=== PATIENT | male | born 1970 | race Caucasian/White ===

== ENCOUNTER 2020-01-06 12:15 | Day surgery (SDC) | payer BC ==
[2020-01-05 09:09] VITALS: BMI 35.2
[~2020-01-06 12:15] MED LIST: LACTATED RINGERS 1,000 ML IV SCH; LIDOCAINE 1% (10MG/ML) FOR IV START INTRADERMA PRN
[2020-01-06 13:01] VITALS: TEMP 99
[2020-01-06] MEDS ORDERED: LIDOCAINE 1% INJ 10MG/ML (20 ML MDV) ONE (13:07)
[2020-01-06] MEDS ORDERED: PROPOFOL 10 MG/ML 20 ML VIAL IV ONE (13:07)
[2020-01-06 14:06] VITALS: RESP 16
[2020-01-06 14:20] VITALS: BP 111/72; PULSE 61
--- NOTE | 2020-01-06 15:08 | P.OP ---
Date of Procedure: 01/06/20 Preoperative Diagnosis: Screening colonoscopy Postoperative Diagnosis: Cecal polyp Diverticulosis Procedure(s) Performed: Colonoscopy with hot snare polypectomy Anesthesia: ANAMARIA ALEXANDRE Surgeon: Remberto Bruno Estimated Blood Loss (ml): 0 Condition: stable Disposition: PACU Description of Procedure: Patient brought in the Endo suite placed in left lateral decubitus position underwent sedation per department of anesthesia timeout performed correct patient correct procedure correct site was verified rectal exam was performed no gross abnormalities are noted the scope was placed in the rectum to the cecum with ease. In the cecum there was a large pedunculated polyp that was removed via hot snare polypectomy and sent to pathology. The scope was then slowly withdrawn make sure to visualize all lara of the colon on the way out. Scattered sigmoid diverticuli were noted. No other abnormalities are noted. Scope was retroflexed in the rectum no gross abnormalities were noted. Patient tolerated the procedure well there are no apparent complications. He'll need a follow-up in 1-3 years for repeat colonoscopy pending the pathology
== END 2020-01-06 14:52 | disposition home or self-care (01) ==
LOC: ORWHC2ENDO 12:15
PROVIDERS: ATTEND Student in an Organized Health Care Education/Training Program
DX: Z12.11 Encounter for screening for malignant neoplasm of colon (principal); D12.0 Benign neoplasm of cecum; K57.30 Diverticulosis of large intestine without perforation or abscess without bleeding; I10 Essential (primary) hypertension; E78.5 Hyperlipidemia, unspecified; Z79.899 Other long term (current) drug therapy
CPT/HCPCS: 88305; 45385; J2001; J2704

== ENCOUNTER 2020-01-15 11:47 | Emergency (ER) | payer BC ==
[2020-01-15] MEDS ORDERED: ONDANSETRON 4 MG/2 ML VIAL IVP STA ×2 (11:52→13:02)
[2020-01-15] MEDS ORDERED: KETOROLAC 30 MG/ML 1 ML VIAL IVP STA (11:52)
[2020-01-15] MEDS ORDERED: HYDROmorphone 1 MG/ML 1 ML SYRINGE IVP STA (11:52)
[2020-01-15] MEDS ORDERED: SODIUM CHLORIDE 0.9% 2,000 ML IV STA (11:52)
[2020-01-15 12:00] VITALS: RESP 18
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
--- NOTE | 2020-01-15 12:38 | CT ---
EXAMINATION TYPE: CT abdomen pelvis wo con DATE OF EXAM: 01/15/2020 COMPARISON: None HISTORY: right flank pain CT DLP: 1203.4 mGycm Automated exposure control for dose reduction was used. TECHNIQUE: Helical acquisition of images was performed from the lung bases through the pelvis. FINDINGS: Lack of intravenous and oral contrast limit evaluation of the hollow and solid viscera. LUNG BASES: Minimal bibasilar subsegmental dependent atelectasis. Small hiatal hernia. LIVER/GB: Unremarkable unenhanced morphology. No radiopaque gallstones. PANCREAS: No ductal dilatation. SPLEEN: No splenomegaly. ADRENALS: No significant abnormality is seen. KIDNEYS: There is mild right hydronephrosis secondary to a 3 mm calculus at the right ureterovesicula r junction. It is mild right perinephric fat stranding. There is a hypoattenuated right lower pole re nal lesion that is ill-defined without contrast and too small to accurately characterize. Nonobstruct ing 2 mm left lower pole renal calculus is seen. No left-sided hydronephrosis. FREE AIR: No free air is visualized RETROPERITONEAL ADENOPATHY: No greater than 1 cm short axis lymph node in the abdomen or pelvis. OSSEOUS STRUCTURES: Moderate degenerative change of the spine. BOWEL: Numerous sigmoid and descending colonic diverticula without pericolonic fat stranding. No dil ated large or small bowel. Appendix is air-filled and within normal limits size. OTHER: Ventral diastases recti and a small fat filled periumbilical hernia are seen. Bilateral fat fi lled inguinal hernias are also seen. IMPRESSION: 1. MILD RIGHT HYDRONEPHROSIS AND PERINEPHRIC FAT STRANDING SECONDARY TO A 3 MM CALCULUS AT THE RIGHT URETEROVESICULAR JUNCTION. 2. NONOBSTRUCTING LEFT RENAL CALCULUS. 3. SIGMOID AND DESCENDING COLONIC DIVERTICULOSIS WITHOUT EVIDENCE OF DIVERTICULITIS. 4. SMALL HIATAL HERNIA.
[2020-01-15 12:41] LABS: Basophils % (A) 0 %; Eosinophils % (A) 0 %; HCT 45.5 % (39.0-53.0); HGB 14.7 gm/dL (13.0-17.5); Lymphocytes # (A) 0.5 k/uL (1.0-4.8); Lymphocytes % (A) 7 %; MCH 30.7 pg (25.0-35.0); MCHC 32.4 g/dL (31.0-37.0); MCV 94.8 fL (80.0-100.0); Mean Platelet Volume 6.8; Monocytes # (A) 0.3 k/uL (0-1.0); Monocytes % (A) 4 %; Neutrophils # (A) 6.4 k/uL (1.3-7.7); Neutrophils % (A) 89 %; Platelet Count 209 k/uL (150-450); RBC 4.81 m/uL (4.30-5.90); RDW 13.3 % (11.5-15.5); WBC 7.2 k/uL (3.8-10.6)
[2020-01-15] MEDS ORDERED: TAMSULOSIN 0.4 MG CAP.ER.24H PO STA (12:45)
[2020-01-15 12:53] LABS: Albumin 4.4 g/dL (3.5-5.0); Potassium 4.6 mmol/L (3.5-5.1); Total Bilirubin 1.2 mg/dL (0.2-1.3); Total Protein 7.1 g/dL (6.3-8.2)
[2020-01-15] MEDS ORDERED: HYDROmorphone 0.5 MG/0.5 ML SYRINGE IVP STA (13:01)
[2020-01-15] MEDS ORDERED: SODIUM CHLORIDE 0.9% 1,000 ML IV ONE (13:03)
[2020-01-15 13:09] VITALS: TEMP 97.7
[2020-01-15 14:06] LABS: Appearance,Urine Clear (Clear); Bilirubin,Urine Negative (Negative); Blood,Urine Small (Negative); Color,Urine Yellow; Glucose,Urine (UA) Negative (Negative); Ketones,Urine 2+ (Negative); Leukocyte Esterase,Urine Negative (Negative); Mucus,Urine Rare /hpf; Nitrite,Urine Negative (Negative); Protein,Urine Trace (Negative); RBC,Urine 9 /hpf (0-5); Squamous Epithelial Cell,Urine <1 /hpf (0-4); Urobilinogen,Urine <2.0 mg/dL (<2.0); WBC,Urine <1 /hpf (0-5)
[2020-01-15] MEDS ORDERED: HYDROcodone/APAP 7.5-325MG 1 EACH TAB PO ONE (14:29)
[2020-01-15 14:33] VITALS: BP 113/69; PULSE 79
== END 2020-01-15 14:47 | disposition home or self-care (01) ==
LOC: EC 11:47
DX: N13.2 Hydronephrosis with renal and ureteral calculous obstruction (principal); I10 Essential (primary) hypertension; E78.5 Hyperlipidemia, unspecified; Z79.899 Other long term (current) drug therapy
CPT/HCPCS: 36415; 80053; 82150; 83690; 85025; 81001; 74176; 99284; 96374; 96375 ×2; 96376 ×2; 96361 ×3; J2405; J1885; J1170 ×2

== ENCOUNTER → 2023-06-18 | Outpatient (CLI) | payer BC ==
[2023-06-18 11:20] LABS: Blood Urea Nitrogen 20.4 mg/dL (9.0-27.0); Chloride 105 mmol/L (96-109); Potassium 4.7 mmol/L (3.5-5.5); Sodium 140 mmol/L (135-145)
[2023-06-18 12:15] LABS: HCT 47.5 % (39.6-50.0); HGB 15.6 d/dL (13.0-17.0); MCH 30.9 pg (27.0-32.0); MCHC 32.8 d/dL (32.0-37.0); MCV 94.1 FL (80.0-97.0); Mean Platelet Volume 9.3 FL (9.5-12.2); NRBC Per 100 WBC 0 X 10*3/uL (0.00-0.01); Platelet Count 235 X 10*3/uL (140-440); RBC 5.05 X 10*6/uL (4.40-5.60); RDW 13.5 % (11.5-14.5); WBC 5.75 X 10*3/uL (4.50-10.00)
== END | disposition home or self-care (01) ==
LOC: LABPAT 07:37
PROVIDERS: ATTEND Student in an Organized Health Care Education/Training Program
DX: Z01.812 Encounter for preprocedural laboratory examination (principal); I47.1 Supraventricular tachycardia
CPT/HCPCS: 80051; 82565; 84520; 85027

== ENCOUNTER 2023-06-20 06:20 | Day surgery (SDC) | payer BC ==
[2023-06-17 15:25] VITALS: BMI 32.1
[~2023-06-20 06:20] MED LIST changes: +ALPRAZolam 0.25 MG TAB PO PRN; +ALPRAZolam 0.5 MG TAB PO PRN; -LACTATED RINGERS 1,000 ML IV SCH; -LIDOCAINE 1% (10MG/ML) FOR IV START INTRADERMA PRN; +NITROGLYCERIN SL TABS 0.4 MG TAB SUBLINGUAL PRN; +SODIUM CHLORIDE 0.9% 1,000 ML in EMPTY BAG 1 BAG IV SCH
[2023-06-20] MEDS ORDERED: SODIUM CHLORIDE 0.9% 1,000 ML IV ONE (06:55)
[2023-06-20] MEDS ORDERED: ASPIRIN 325 MG TAB PO ONE (07:00)
[2023-06-20] MEDS ORDERED: HEPARIN SODIUM,PORCINE (1 ML) 2,500 UNIT in SODIUM CHLORIDE 0.9% 250 ML IRRIGATION PRN (07:00)
[2023-06-20] MEDS ORDERED: ATORVASTATIN 80 MG TAB PO ONE (07:00)
[2023-06-20] MEDS ORDERED: HEPARIN SODIUM,PORCINE 10,000 UNIT in SODIUM CHLORIDE 0.9% 1,000 ML IRRIGATION PRN (07:00)
[2023-06-20 07:08] VITALS: RESP 16; TEMP 98.1
[2023-06-20] MEDS ORDERED: VERAPAMIL 2.5 MG/ML 2 ML AMP ONE ×2 (07:31→08:26)
[2023-06-20] MEDS ORDERED: LIDOCAINE 1% INJ 10MG/ML (20 ML MDV) ONE (07:31)
[2023-06-20] MEDS ORDERED: HEPARIN SODIUM 1,000 UN/ML (10ML VL) ONE (07:40)
[2023-06-20] MEDS ORDERED: fentaNYL (PF) 50 MCG/ML 2 ML AMP ONE (07:41)
[2023-06-20] MEDS ORDERED: fentaNYL (PF) 50 MCG/ML 2 ML AMP IVP ONE (07:44)
[2023-06-20] MEDS: LIDOCAINE 1% INJ 10MG/ML (20 ML MDV) SQ ONE ×2 (07:44→08:08)
[2023-06-20] MEDS ORDERED: LIDOCAINE 1% INJ 10MG/ML (20 ML MDV) SQ ONE (07:44)
[2023-06-20] MEDS: MIDAZOLAM 2 MG/2 ML VIAL IVP ONE ×2 (07:44→08:05)
[2023-06-20] MEDS ORDERED: VERAPAMIL SYRINGE (5 MG/10 ML) INTRAARTER ONE ×2 (07:46→08:29)
[2023-06-20] MEDS ORDERED: HEPARIN SODIUM 1,000 UN/ML (10ML VL) IV ONE (08:30)
[2023-06-20 08:43] LABS: O2 Sat Blood Gas 77.6 %
[2023-06-20 08:46] LABS: O2 Sat Blood Gas 95.7 %
[2023-06-20] MEDS ORDERED: IOPAMIDOL-370 100ML BTL INJ ONE (09:00)
[2023-06-20 16:11] VITALS: BP 114/60; PULSE 55
--- NOTE | 2023-06-20 16:52 | P.CARDCATH ---
Date of Procedure: 06/20/23 Description of Procedure: DIAGNOSTIC CORONARY ANGIOGRAPHY, RIGHT HEART CATH, LEFT HEART CATH REPORT PROCEDURES PERFORMED: 1. Left heart catheterization 2. Selective coronary angiography 3. Moderate conscious sedation 72 mins 4. Right radial access 5. Right heart catheterization 5. Right femoral vein access INDICATION: Unstable Angina. Patient is a 52-year-old female who is known to Dr. Gonsalez. Over last few weeks patient has been having palpitations. He was found to have frequent premature ventricular contractions. His echocardiogram showed increased pulmonary artery systolic pressure. For this he was scheduled for an outpatient left and right heart catheterization to look for coronary artery disease and to measure right-sided pressures. CONSENT: I have discussed the risks, benefits and alternative therapies for the above-mentioned procedure, sedation/analgesia and necessary blood product administration (if indicated, as they pertain to this patient). The patient has indicated understanding and acceptance of the risks and procedures discussed. Conscious Sedation: Patient's ECG, heart rate, blood pressure, pulse oxymetry was monitored throughout the duration of procedure under the direct supervision. [2] mg Versed and [50] mg Fentanyl were used for induction of moderate conscious sedation. Total duration of [72] minutes PROCEDURE: After the risks, benefits and alternatives of the above mentioned procedure explained in detail with the patient, informed consent was obtained. Patient was taken to the catheterization lab and prepped and draped in usual sterile fashion. 1% lidocaine was infiltrated over the right radial artery. A 6-N[place]ien sheath was placed in the right radial artery using modified Seldinger technique. Under ultrasound guidance right antecubital venous access was attempted but it was unsuccessful. We decided to proceed with left femoral vein access. Left femoral access was achieved using ultrasound guidance using a micropuncture needle and modified Seldinger technique. 6 [place] sheath was advanced and through that sheath 6 [place] Renner catheter was advanced. Sequential pressures were obtained in right atrium and right ventricle pulmonary artery and wedge position. Pulmonary artery oxygen saturation and arterial oxygen saturation were obtained to calculate Evelin cardiac output. The sheath was flushed 5 mg verapamil was administered intra-arterially. J tipped wire was advanced under fluoroscopic guidance. Once the wire tip reached aortic root [6000] units of IV heparin was given. Over the wire JL3.5 diagnostic catheter was advanced. Due to short aortic root and tortuous innominate artery JL 3.5 catheter could not engage left coronary artery. It was exchanged for a JL 3 catheter. Wire was removed, catheter was flushed and manipulated under fluoroscopy to selectively engaged the left coronary ostium. Left coronary angioplasty was performed in different angiographic projections. This catheter was exchanged for a JR4 diagnostic catheter over the wire. The catheter was flushed and manipulated to cross the aortic valve. LV pressures were obtained. Pullback was performed across aortic valve and catheter was manipulated to selectively engage the right coronary ostium under fluroscopic guidance. Right coronary angiography was performed in different angiographic projections. Catheter was removed over the wire. Radial sheath was flushed. The right radial sheath was removed and a TR band was placed with excellent patent hemostasis was achieved. The patient tolerated the procedure well. Patient was transported back to the post catheterization holding area in stable condition. Angiographic images were reviewed in detail. HEMODYNAMICS: Aortic Pressure: 87/54 mmHg. LV pressure: 90/2 mmHg. LVEDP 11 mmHg. Mean RA pressure 6 RV pressures 31 over 1 mmHg, RVEDP 9 mmhg Pulmonary artery 31/9 mmHg mean pulmonary artery 40 mmHg Mean pulmonary artery wedge pressure 11 mmHg Evelin cardiac output 8.9 Evelin cardiac index 3.97 SELECTIVE CORONARY ARTERIOGRAPHY: LEFT MAIN: The left main is a large caliber vessel which trifurcates into the LAD, ramus and circumflex. There is no significant stenosis. There is 10-20% luminal irregularities LEFT ANTERIOR DESCENDING CORONARY ARTERY: LAD is a large caliber vessel which wraps around to the apex. There is no significant stenosis. RAMUS INTERMEDIUS: Medium size, no significant disease. LEFT CIRCUMFLEX CORONARY ARTERY: Non dominant. Left circumflex is small caliber 2 mm. It has 100% stenosis in proximal segment before it gives OM2 branch. OM1 is very small. OM2 is getting filled with JESSE 1 flow from bridging collaterals from LCx. RIGHT CORONARY ARTERY: The right coronary artery is a large caliber vessel which gives off a PDA and PLV branch and is the dominant vessel. There 20-30% luminal narrowing, with no significant stenosis. IMPRESSION: 1. CAD with ACCOUNTS PAYABLE PAYROLL COORDINATOR of Lcx, non dominant, small vessel 2. Minimal CAD otherwise 3. Normal Right sided pressures 4. Normal PCW and LVEDP PLAN: Due to small nature and lack of anginal symptoms we decided not to do any intervention for small ACCOUNTS PAYABLE PAYROLL COORDINATOR Lcx. 1. Aggressive risk factor modification per most recent ACC/AHA guidelines. 2. Follow-up in the office in 1-2 weeks. Performing Physician Jono Geronimo MD
== END 2023-06-20 13:10 | disposition home or self-care (01) ==
LOC: CATHCVL 06:20
PROVIDERS: ATTEND Student in an Organized Health Care Education/Training Program
DX: I25.10 Atherosclerotic heart disease of native coronary artery without angina pectoris (principal); I10 Essential (primary) hypertension; E78.5 Hyperlipidemia, unspecified; Z79.82 Long term (current) use of aspirin; Z79.899 Other long term (current) drug therapy
CPT/HCPCS: 93460; 76937; 85018; 82810; C1769 ×3; C1894 ×2; C1751; J2250; J2001; J3010; J1644; Q9967

== ENCOUNTER → 2024-05-25 | Outpatient (CLI) | payer BC ==
--- NOTE | 2024-05-25 08:16 | US ---
EXAMINATION TYPE: US liver DATE OF EXAM: 05/25/2024 COMPARISON: NONE CLINICAL INDICATION: Male, 53 years old with history of R74.01 elevated transaminase; change in Lipit or script and now has elevated lft's, no symptoms TECHNIQUE: Multiple sonographic images of the right upper quadrant are obtained. FINDINGS: EXAM MEASUREMENTS: Liver Length: 17.7cm Gallbladder Wall: 0.2 cm CBD: 0.4 cm Right Kidney: 9.1 x 4.3 x 4.6 cm SHEETING PULLER NOTES:intercostal imaging due to bowel gas Pancreas: not seen due to bowel gas Liver: wnl Gallbladder: wnl Evidence for sonographic Rios's sign: no CBD: wnl Right Kidney: wnl IMPRESSION: No distinct abnormality seen. Limited evaluation of the pancreas.
== END | disposition home or self-care (01) ==
LOC: RADUSWWP 07:09
PROVIDERS: ATTEND Internal Medicine
DX: R74.01 Elevation of levels of liver transaminase levels (principal); R79.89 Other specified abnormal findings of blood chemistry
CPT/HCPCS: 76705